=== PATIENT | female | born 1940 | race Caucasian/White ===

== ENCOUNTER 2020-02-01 08:38 | Emergency (ER) | payer OTHER ==
--- OUTSIDE RECORDS SUMMARY | 2020-02-01 08:48 | XMS REPORT | Continuity of Care Document ---
:1940 Author Organization [facility] t Address [address] [place] [address] Care Team Providers Name Role Phone Asked, Pcp Primary Care Physician Unavailable Rachelle Mars MA Attending Clinician Unavailable Noni BAY Attending Clinician Fabio DUMONT Attending Clinician Unavailable Payers Payer Name Policy Type Policy Effective Date Expiration Date Sour ce Number AETNA MEDICAREAETNA [id number] 2019 [place] MEDICARE HMO/PPO 00:00:00 Methodis t [id number] Problems Condition Condition Condition Status Onset Resolution Last Treating Co mments Source Name Details Category Date Date Treatment Clinician Date Other Other Disease Active [place]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 Me thodi scoliosis, scoliosis, 00:00: st thoracolum thoracolum 00 bar region bar region DDD DDD Disease Active [place] (degenerat (degenerat 5-22 Me thodi jania disc jania disc 00:00: st disease), disease), 00 lumbar lumbar Osteoarthr Osteoarthr Disease Active 2017-04 [place] itis of itis of 04-25 [facility] spine with spine with 00:00: st radiculopa radiculopa 00 thy, thy, lumbar lumbar region region Cough Cough Disease Active 2016-04 [place] 04-08 Methodi 00:00: st 00 Chronic Chronic Disease Active [place] left-sided left-sided 4-24 Me th[facility] low back low back 00:00: st pain pain 00 without without sciatica sciatica Meibomian Meibomian Disease Active 2015-04 Jolly ston blephariti blephariti Me thodi s s 00:00: st 00 Eczema Eczema Disease Active 2015-04 [place] Methodi 00:00: st 00 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 7- Dx age 35 M ethodi involving involving 00:00: st multiple multiple 00 sites with sites with positive positive rheumatoid rheumatoid factor factor Hypothyroi Hypothyroi Disease Active katya dism dism 10-16 Methodi 00:00: st 00 Osteoporos Osteoporos Disease Active [place] is is 10-16 Methodi 00:00: st 00 GERD GERD Disease Active Overview: [place] (gastroeso (gastroeso 10-16 With Me thodi phageal phageal 00:00: stricture st reflux reflux 00 disease) disease) Allergies, Adverse Reactions, Alerts Allergy Allergy Status Severity Reaction(s) Onset Inactive Treating Comm ents Source Name Type Date Date Clinician Gold Propensi Active 2015-04 [place] Salts ty to Methodi adverse 00:00: st reaction 00 s to drug Propoxyp Propensi Active [place] ty to 10-16 [facility] adverse 00:00: st reaction 00 s to drug Penicill Propensi Active Anaphylaxis [place] ins ty to 10-16 Methodi adverse 00:00: st reaction 00 s to drug Family History Family Member Diagnosis Comments Start Date Stop Date Source Maternal uncle Ankylosing spondylitis [place] Taoism Natural mother Rheum arthritis [place] [facility] Social History Social Habit Start Date Stop Date Quantity Comments Source History of Cigarette Smoker [facility] tobacco use Sex Assigned At [facility] ethodist Tobacco use and 2018-08-26 2018-08-26 Never used [facility] ethodist exposure 00:00:00 00:00:00 Tobacco Comment 2016-01-31 2016-01-31 3-4 per day [place] [facility] 00:00:00 00:00:00 Alcohol Comment 2016-01-31 2016-01-31 4 glasses wine [place] [facility] 00:00:00 00:00:00 per year Smoking Status Start Date Stop Date Source Former smoker 2018-08-26 00:00:00 2018-08-26 00:00:00 [facility] Medications Ordered Filled Start Stop Current Ordering Indication Dosage Frequency Signature Comments Components Source Medication Medication Date Date Medication? Clinician (SIG) Name Name acetaminoph 2020-0 Yes 1000mg Q.5D Take 1,000 [place] en 8-13 mg by Methodi (TYLENOL) 11:26: mouth 2 st 500 MG 33 (two) tablet times a day. calcium 2020-0 Yes 1{tbl} Q.5D Take 1 [place] carbonate-v 8-13 tablet by Met baires itamin D3 11:22: mouth 2 st 500 mg-200 31 (two) unit per times a tablet day with meals. cevimeline 2019-0 Yes 30mg Q.[id number] Take 1 [place] (EVOXAC) 30 8-13 [id number] capsule Methodi mg capsule 00:00: 3D ([address] 00 total) by mouth 3 (three) times a day. levothyroxi Yes 50ug QD Take 1 [place] 8-13 tablet (50 [facility] (SYNTHROID) 00:00: mcg total) st 50 mcg 00 by mouth tablet daily. leflunomide 2020- Yes 20mg QD Take 1 Jolly ston (ARAVA) 20 8-17 11-14 tablet (20 Me thodi MG tablet 00:00: 23:59 mg total) st 00 :00 by mouth daily. etanercept 2020- Yes INJECT [place] (EnbreL) 50 8- 08-14 50MG [facility]i mg/mL (1 00:00: 23:[address] mL) 00 :00 USLY injection EVERY WEEK etanercept 2020- No INJECT [place] (EnbreL) 50 8- 08-13 50MG [facility] mg/mL (1 00:00: 00:[address] mL) 00 :00 USLY injection EVERY WEEK cevimeline 2020- No 30mg Q.[id number] TAKE 1 [place] (EVOXAC) 30 6-25 08-13 [id number] CAPSULE [facility] mg capsule 00:00: 00:00 3D ([address] 00 :00 TOTAL) BY MOUTH 3 (THREE) TIMES A DAY. minocycline 2020- No Rheumatoid 50mg Q.5D Take 1 [place] (DYNACIN) 07-06-02 arthritis tablet (50 Methodi 50 MG 00:00: 23:59 involving mg total) s t tablet 00 :00 multiple by mouth 2 sites with (two) positive times a rheumatoid day. factor (HCC) levothyroxi 2019- No 50ug QD Take 1 Jolly adrianan ne 07-06- tablet (50 [facility] (SYNTHROID) 00:00: 00:00 mcg total) st 50 mcg 00 :00 by mouth tablet daily. cevimeline 2019- No 30mg Q.[id number] Take 1 [place] (EVOXAC) 30 07-06 [id number] capsule Methodi mg capsule 00:00: 00:00 3D ([address] 00 :00 total) by mouth 3 (three) times a day. leflunomide 2019- No TAKE 1 Jolly pedraza (ARAVA) 20 04-29 TABLET BY hodi MG tablet 00:00: 00:00 MOUTH ONCE s t 00 :00 A DAY cevimeline 2019- No TAKE 1 [place] (EVOXAC) 30 04-29 CAPSULE BY M ethodi mg capsule 00:00: 00:[address] 00 :00 TIMES A DAY etanercept 2018-04- No INJECT [place] (ENBREL) 50 2 08-10 50MG Methodi mg/mL (1 00:00: 00:[address] mL) 00 :00 USLY injection EVERY WEEK traMADol 2018-04- No TAKE 2 [place] (ULTRAM) 50 05-01-13 TABLETS BY M ethodi mg tablet 00:00: 00:[address] 00 :00 EVERY 6 HOURS NEEDED FOR MODERATE PAIN levothyroxi 2018-04- No TAKE 1 Jolly pedraza ne 05-01 TABLET BY Methodi (SYNTHROID) 00:00: 00:[address] 50 mcg 00 :00 A DAY tablet levothyroxi 2018- No TAKE 1 Jolly ston ne 12-14 TABLET BY Methodi (SYNTHROID, 00:00: 00:[address] LEVOXYL) 50 00 :00 A DAY mcg tablet minocycline 2019- No Rheumatoid TAKE 1 [place] (DYNACIN) 10-09 arthritis TABLET BY Methodi 50 MG 00:00: 00:[address] tablet 00 :00 multiple TWICE A sites with DAY positive rheumatoid factor (HCC) cevimeline 2019- No TAKE 1 [place] (EVOXAC) 30 10-09 CAPSULE BY M ethodi mg capsule 00:00: 00:[address] 00 :00 TIMES A DAY leflunomide 2019- No TAKE 1 Jolly pedraza (ARAVA) 20 704-29 TABLET BY Met hodi MG tablet 00:00: 00:00 MOUTH ONCE s t 00 :00 A DAY etanercept 2018- INJECT THE [place] (ENBREL) 50 08-26 12-05 CONTENTS Met hodi mg/mL (0.98 00:00: 00:00 OF ONE(1) st mL) 00 :00 PREFILLED injection SYRINGE SUBCUTANEO USLY ONCE A WEEK. traMADol 2018- No 100mg Q6H Take 2 [place] (ULTRAM) 50 5- 11-22 tablets Meth elizabeth mg tablet 00:00: 00:00 ([address] 00 :00 total) by mouth every 6 (six) hours as needed for moderate pain for up to 180 days. Immunizations Ordered Immunization Filled Immunization Date Status Commen ts Source Name Name PPD Test 2009-10-12 Completed [place] 00:00:00 Taoism Vital Signs Vital Name Observation Time Observation Value Comments Source Systolic blood 2019-11-18 11:22:00 160 mm[Hg] [place] [facility] pressure Diastolic blood 2019-11-18 11:22:00 107 mm[Hg] [place] [facility] pressure Heart rate 2019-11-18 11:22:00 92 /min [place] Bell Body temperature 2019-11-18 11:22:00 36.72 Rose [place] ton Taoism Body weight 2019-11-18 11:22:00 55.792 kg [place] Bell BMI 2019-11-18 11:22:00 24.02 kg/m2 [place] Bell Oxygen saturation in 2019-11-18 11:22:00 100 /min [place] Bell Arterial blood by Pulse oximetry Procedures Procedure Date / Time Performed Performing Clinician Sour e CBC WITH PLATELET AND 2019-11-18 12:04:00 Lv Cheney DIFFERENTIAL COMPREHENSIVE METABOLIC 2019-11-18 12:04:00 Lv Cheney PANEL SEDIMENTATION RATE 2019-11-18 12:04:00 Lv Cheney C-REACTIVE PROTEIN 2019-11-18 12:04:00 Lv Cheney ethodist CBC WITH PLATELET AND 2019-02-24 11:14:00 Lv Cheney Taoism DIFFERENTIAL COMPREHENSIVE METABOLIC 2019-02-24 11:14:00 Lv Cheney Taoism PANEL SEDIMENTATION RATE 2019-02-24 11:14:00 Lv Cheney ethodist C-REACTIVE PROTEIN 2019-02-24 11:14:00 Lv Cheney ethodist Plan of Care Planned Activity Planned Date Details Comments Source Future Scheduled 2019-11-06 INFLUENZA VACCINE Lelo krueger [facility] Test 00:00:00 [code = INFLUENZA VACCINE] Future Scheduled 2004-07-29 65+ PNEUMOCOCCAL [place] [facility] Test 00:00:00 VACCINE (1 of 1 - PPSV23) [code = 65+ PNEUMOCOCCAL VACCINE (1 of 1 - PPSV23)] Future Scheduled 1989-07-29 SHINGLES VACCINES (#1) [facility] [place] [facility] Test 00:00:00 [code = SHINGLES VACCINES (#1)] Encounters Start End Encounter Admission Attending Care Care Encounter Source Date/Time Date/Time Type Type Clinicians Facility Department ID 2019-11-18 2019-11-18 Outpatient NONI [facility] [id number] [place] 00:00:00 00:00:00 LV Alexander Method i st Results Test Description Test Time Test Comments Results Result Comments Source Comprehensive metabolic panel 2019-11-23 14:29:00 Test Item Value Reference Range Interpretation Comme nts Glucose (test code = 2345-7) 101 mg/dL 65-99 H BUN (test code = 3094-0) 28 mg/dL 8-27 H Creatinine (test code = 2160-0) 0.90 mg/dL 0.57-1 EGFR Non-Afr. Romanian (test code = 61 mL/min/1.73 >59 2775) EGFR (test code = 70 mL/min/1.73 >59 2774) BUN/creatinine ratio (test code = 31 12-28 H 3097-3) Sodium (test code = 2951-2) 142 mmol/L 134-144 Potassium (test code = 2823-3) 4.7 mmol/L 3.5-5.2 Chloride (test code = 2075-0) 99 mmol/L 96-106 CO2 (test code = 2027-9) 25 mmol/L 20-29 Calcium (test code = 99423-4) 11.0 mg/dL 8.7-10.3 H Protein (test code = 2885-2) 7.0 g/dL 6-8.5 Albumin, S (test code = 1751-7) 4.2 g/dL 3.7-4.7 Globulin, total (test code = 2.8 g/dL 1.5-4.5 87538-3) Albumin/globulin ratio (test code = 1.5 1.2-2.2 1759-0) Total bilirubin (test code = 1974-2) 0.3 mg/dL 0-1.2 Alkaline phosphatase (test code = 104 39- 117 IU/L 6768-6) AST (test code = 192-8) 23 0- 40 IU/L ALT (test code = 1742-6) 13 0- 32 IU/L JERONIMO (test code = JERONIMO) Performed at: - [facility] [id number] Director: Zack Moore MD, Phone: [phone] Lab Interpretation (test code = Abnormal 18039-4) [facility]-reactive [id number] 14:29:00 Test Item Value Reference Range Interpretation Comments CRP (test code = <1 0-10 1987-5) JERONIMO (test code = Performed at: - JERONIMO) [facility] [address] [id number] Director: Zack Moore MD, Phone: [phone] [facility] with platelet and [id number] 14:29:00 Test Item Value Reference Range Interpretation Comments WBC (test code = 5.7 3.4- 10.8 x10E3/uL 6690-2) RBC (test code = 4.25 3.77- 5.28 789-8) x10E6/uL HGB (test code = 12.7 g/dL 11.1-15.9 718-7) HCT (test code = 39.0 % 34-46.6 4544-3) MCV (test code = 92 fL 79-97 787-2) MCH (test code = 29.9 pg 26.6-33 785-6) MCHC (test code = 32.6 g/dL 31.5-35.7 786-4) RDW (test code = 14.3 % 11.7-15.4 788-0) Platelet count (test 278 150- 450 x10E3/uL code = 777-3) Neutrophils (test code 63 % Not Estab. = 770-8) Lymphocytes (test code 22 % Not Estab. = 736-9) Monocytes (test code = 12 % Not Estab. 5905-5) Eosinophils (test code 1 % Not Estab. = 713-8) Basophils (test code = 2 % Not Estab. 706-2) Neutrophils, absolute 3.6 1.4- 7.0 x10E3/uL (test code = 751-8) Lymphocytes, absolute 1.3 0.7- 3.1 x10E3/uL (test code = 731-0) Monocytes, absolute 0.7 0.1- 0.9 x10E3/uL (test code = 742-7) Eosinophils, absolute 0.1 0.0- 0.4 x10E3/uL (test code = 711-2) Basophils, absolute 0.1 0.0- 0.2 x10E3/uL (test code = 704-7) Immature granulocytes 0 % Not Estab. (test code = 67661-4) Immature grans (abs) 0.0 0.0- 0.1 x10E3/uL (test code = 31662-1) JERONIMO (test code = JERONIMO) Performed at: [facility] [id number] Director: Zack Moore MD, Phone: [phone] Comment: A duplicate report has been generated due to demographic updates. [place] [facility] [id number] 14:29:00 Test Item Value Reference Range Interpretation Comments Sedimentation rate (test 52 0- 40 mm/hr H code = 4537-7) JERONIMO (test code = JERONIMO) Performed at: [facility] [id number] Director: Zack Moore MD, Phone: [phone] Lab Interpretation (test Abnormal code = 74792-7) [facility] Bell
--- OUTSIDE RECORDS SUMMARY | 2020-02-01 08:48 | XMS REPORT | Clinical Summary ---
:1940 Author Organization [facility] Address [address] [place] [address] Care Team Providers Name Role Phone Asked, No Pcp Primary Care Provider Unavailable Allergies Active Allergy Reactions Severity Noted Date Comments Propoxyphene 10/17/2015 Gold Salts 01/31/2016 Penicillins Anaphylaxis High 10/17/2015 Medications Medication Sig Dispensed Refills Start End Status Date Date calcium Take 1 tablet by 0 Act jania carbonate-vitamin mouth 2 (two) D3 500 mg-200 times a day with unit per tablet meals. minocycline Take 1 tablet (50 180 tablet 1 07/07/19 Active (DYNACIN) 50 MG mg total) by mouth 20 021 tabletIndications 2 (two) times a : Rheumatoid day. arthritis involving multiple sites with positive rheumatoid factor (HCC) acetaminophen Take 1,000 mg by 0 Active (TYLENOL) 500 MG mouth 2 (two) tablet times a day. leflunomide Take 1 tablet (20 90 tablet 1 11/18/19 Active (ARAVA) 20 MG mg total) by mouth 20 021 tablet daily. cevimeline Take 1 capsule (30 270 capsule 0 11/18/19 Active (EVOXAC) 30 mg mg total) by mouth 20 capsule 3 (three) times a day. levothyroxine Take 1 tablet (50 90 tablet 1 11/18/19 Active (SYNTHROID) 50 mcg total) by 20 mcg tablet mouth daily. etanercept INJECT 50MG 11.76 mL 5 11/18/19 Active (EnbreL) 50 mg/mL SUBCUTANEOUSLY 20 021 (1 mL) injection EVERY WEEK traMADol (ULTRAM) Take 2 tablets 120 tablet 3 08/27/19 Discontinued 50 mg tablet (100 mg total) by (Reorder) mouth every 6 (six) hours as needed for moderate pain for up to 180 days. etanercept INJECT THE 12 mL 1 08/27/19 Disconti nued (ENBREL) 50 mg/mL CONTENTS OF ONE(1) (Reorder) (0.98 mL) PREFILLED SYRINGE injection SUBCUTANEOUSLY ONCE A WEEK. minocycline TAKE 1 TABLET BY 180 tablet 1 10/10/19 Discontinued (DYNACIN) 50 MG MOUTH TWICE A DAY (Reorder) tabletIndications : Rheumatoid arthritis involving multiple sites with positive rheumatoid factor (HCC) cevimeline TAKE 1 CAPSULE BY 270 capsule 1 10/10/19 Discontinued (EVOXAC) 30 mg MOUTH 3 TIMES A capsule DAY leflunomide TAKE 1 TABLET BY 90 tablet 1 10/10/19 D iscontinued (ARAVA) 20 MG MOUTH ONCE A DAY tablet levothyroxine TAKE 1 TABLET BY 90 tablet 0 12/15/19 Discontinued (SYNTHROID, MOUTH ONCE A DAY ( Reorder) LEVOXYL) 50 mcg tablet levothyroxine TAKE 1 TABLET BY 90 tablet 1 03/01/20 Discontinued (SYNTHROID) 50 MOUTH ONCE A DAY (Reorder) mcg tablet traMADol (ULTRAM) TAKE 2 TABLETS BY 120 tablet 1 03/01/2020/05 Discontinued 50 mg tablet MOUTH EVERY 6 19 020 HOURS NEEDED FOR MODERATE PAIN etanercept INJECT 50MG 11.76 mL 5 03/11/20 Discont inued (ENBREL) 50 mg/mL SUBCUTANEOUSLY (Reorder) (1 mL) injection EVERY WEEK leflunomide TAKE 1 TABLET BY 90 tablet 0 04/29/19 D iscontinued (ARAVA) 20 MG MOUTH ONCE A DAY (Reorder) tablet cevimeline TAKE 1 CAPSULE BY 270 capsule 0 04/29/19 Discontinued (EVOXAC) 30 mg MOUTH 3 TIMES A 020 (Reorder) capsule DAY levothyroxine Take 1 tablet (50 90 tablet 1 07/07/19 Discontinued (SYNTHROID) 50 mcg total) by 20 020 ( Reorder) mcg tablet mouth daily. cevimeline Take 1 capsule (30 270 capsule 0 07/07/19 Discontinued (EVOXAC) 30 mg mg total) by mouth 20 020 capsule 3 (three) times a day. cevimeline TAKE 1 CAPSULE (30 270 capsule 0 09/30/19 Discontinued (EVOXAC) 30 mg MG TOTAL) BY MOUTH 20 020 (Reorder) capsule 3 (THREE) TIMES A DAY. 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 10/17/2015 factor Overview: Dx age 35 Hypothyroidism 10/17/2015 Osteoporosis 10/17/2015 GERD (gastroesophageal reflux disease) 10/17/2015 Overview: With stricture Encounters Date Type Specialty Care Team Description 01/05/2020 Telephone Rheumatology Thomas Mars MA Osteopor osis, unspecified osteoporosis ty pe, unspecified pat hological fracture presen ce (Primary Dx) 11/18/2019 Office Visit Rheumatology Liz Cheney MD Rheumatoi d arthritis involving multiple sites with positive rheumatoid factor (HCC) (Primary Dx); Immunosuppresse d status (HCC); High risk medic ation use; Blue sclera 11/18/2019 Refill Rheumatology Hannah Mccarthy MA 11/18/2019 Travel 11/15/2019 Refill Rheumatology Hannah Mccarthy MA 09/30/2019 Refill Rheumatology Liz Cheney MD 07/09/2019 Telephone Rheumatology Thomas Mars MA 07/07/2019 Refill Rheumatology Hannah Mccarthy MA Rheumatoid a rthritis involving multi ple sites with positive r heumatoid factor (HCC) 07/05/2019 Refill Rheumatology Hannah Mccarthy MA Rheumatoid a rthritis involving multi ple sites with positive r heumatoid factor (HCC) 06/08/2019 Telephone Rheumatology Thomas Mars MA 04/29/2019 Refill Rheumatology Liz Cheney MD 03/12/2019 Telephone Rheumatology Thomas Mars MA 03/11/2019 Refill Rheumatology Liz Cheney MD 02/26/2019 Refill Rheumatology Liz Cheney MD 02/24/2019 Office Visit Rheumatology Liz Cheney MD Rheumatoi d arthritis involving multiple sites with positive rheumatoid factor (HCC) (Primary Dx); Immunosuppresse d status (HCC); High risk medic ation use after 01/31/2019 Immunizations Name Administration Dates Next Due PPD Test 10/12/2009 Surgical History Surgery Date Site/Laterality Comments FOOT SURGERY 04/07/2003 - Left 04/06/2004 SHOULDER SURGERY Bilateral HAND SURGERY redo x2 KNEE SURGERY 04/07/1991 - Right 04/06/1992 KNEE SURGERY 02/06/1992 - Left 03/06/1992 TOTAL ELBOW REPLACEMENT 04/07/1994 - Left Right el bow replacement 04/06/1995 also done same y ear WRIST FUSION 04/07/1993 - Left Right wrist also done same 05/07/1993 year Medical History Medical History Date Comments Disease of thyroid gland Arthritis Menopause ovarian failure Family History Medical History Relation Name Comments Ankylosing spondylitis Maternal Uncle Rheum arthritis Mother Relation Name Status Comments Maternal Uncle Ankylosing spond ylitis Maternal Uncle Mother Social History Tobacco Use Types Packs/Day Years Used Date Former Smoker Cigarettes 2 Smokeless Tobacco: Never Used Comments: 3-4 per day Sex Assigned at Date Recorded Not on file Last Filed Vital Signs Vital Sign Reading Time Taken Comments Blood Pressure 160/107 11/18/2019 11:22 AM CDT Pulse 92 11/18/2019 11:22 AM CDT Temperature 36.7 C (98.1 F) 11/18/2019 11:22 AM CDT Respiratory Rate - - Oxygen Saturation 100% 11/18/2019 11:22 AM CDT Inhaled Oxygen Concentration - - Weight 55.8 kg (123 lb) 11/18/2019 11:22 AM CDT Height - - Body Mass Index 24.02 01/21/2019 10:30 AM CDT Plan of Treatment Date Type Specialty Care Team Description 05/31/2020 [place] [address] [facility] [address] [place], [place] [address] [phone] Health Maintenance Due Date Last Done Comments SHINGLES VACCINES (#1) 07/29/1989 65+ PNEUMOCOCCAL VACCINE (1 of 1 - PPSV23) 07/29/2004 INFLUENZA VACCINE 11/06/2019 01/05/2018 Procedures Procedure Name Priority Date/Time Associated Comments Diagnosis C-REACTIVE PROTEIN Routine 11/18/2019 12:04 Rheumatoid Resul ts for this PM CDT arthritis involving procedur e are in multiple sites with the resu lts positive rheumatoid section. factor (HCC) SEDIMENTATION RATE Routine 11/18/2019 12:04 Rheumatoid Resul ts for this PM CDT arthritis involving procedur e are in multiple sites with the resu lts positive rheumatoid section. factor (HCC) COMPREHENSIVE Routine 11/18/2019 12:04 Rheumatoid Results fo r this METABOLIC PANEL PM CDT arthritis involving proce dure are in multiple sites with the resu lts positive rheumatoid section. factor (HCC) CBC WITH PLATELET AND Routine 11/18/2019 12:04 Rheumatoid Re sults for this DIFFERENTIAL PM CDT arthritis involving procedur e are in multiple sites with the resu lts positive rheumatoid section. factor (HCC) C-REACTIVE PROTEIN Routine 02/24/2019 11:14 Rheumatoid Resul ts for this AM CNC SET UP OPERATOR arthritis involving procedur e are in multiple sites with the resu lts positive rheumatoid section. factor (HCC) SEDIMENTATION RATE Routine 02/24/2019 11:14 Rheumatoid Resul ts for this AM CNC SET UP OPERATOR arthritis involving procedur e are in multiple sites with the resu lts positive rheumatoid section. factor (HCC) COMPREHENSIVE Routine 02/24/2019 11:14 Rheumatoid Results fo r this METABOLIC PANEL AM CNC SET UP OPERATOR arthritis involving proce dure are in multiple sites with the resu lts positive rheumatoid section. factor (HCC) CBC WITH PLATELET AND Routine 02/24/2019 11:14 Rheumatoid Re sults for this DIFFERENTIAL AM CNC SET UP OPERATOR arthritis involving procedur e are in multiple sites with the resu lts positive rheumatoid section. factor (HCC) after 01/31/2019 Results Sedimentation rate (11/18/2019 12:04 PM CDT)Only the most recent of2 results within the time period is included. Pathologist Sig nature Sedimentation rate 52 (H) 0 - 40 mm/hr [facility] Specimen Blood Narrative Performed At Performed at: 01 - [facility] [address], [place] [address] 217 Geospatial Analyst: Zack Moore MD, Phone: [phone] Performing Organization Address City/[facility] Phon e Number [facility] CBC with platelet and differential (11/18/2019 12:04 PM CDT)Only the most recent of2 resultswithin the time period is included. Pathologist Sig nature WBC 5.7 3.4 - 10.8 x10E3/uL [facility] RBC 4.25 3.77 - 5.28 x10E6/uL [facility] HGB 12.7 11.1 - 15.9 g/dL [facility] HCT 39.0 34.0 - 46.6 % [facility] MCV 92 79 - 97 fL [facility] MCH 29.9 26.6 - 33.0 pg [facility] MCHC 32.6 31.5 - 35.7 g/dL [facility] RDW 14.3 11.7 - 15.4 % [facility] Platelet count 278 150 - 450 x10E3/uL [facility] Neutrophils 63 Not Estab. % [facility] Lymphocytes 22 Not Estab. % [facility] Monocytes 12 Not Estab. % [facility] Eosinophils 1 Not Estab. % [facility] Basophils 2 Not Estab. % [facility] Neutrophils, absolute 3.6 1.4 - 7.0 x10E3/uL [facility] Lymphocytes, absolute 1.3 0.7 - 3.1 x10E3/uL [facility] Monocytes, absolute 0.7 0.1 - 0.9 x10E3/uL [facility] Eosinophils, absolute 0.1 0.0 - 0.4 x10E3/uL [facility] Basophils, absolute 0.1 0.0 - 0.2 x10E3/uL [facility] Immature granulocytes 0 Not Estab. % [facility] Immature grans (abs) 0.0 0.0 - 0.1 x10E3/uL [facility] Specimen Blood Narrative Performed At Performed at: - [facility] [address], [place] [address] 143 Geospatial Analyst: Zack Moore MD, Phone: [phone] Specimen Comment: A duplicate report has been generate d due to demographic updates. Performing Organization Address City/[facility]/ZIP Code Phon e Number [facility] C-reactive protein (11/18/2019 12:04 PM CDT)Only the most recent of2 results within the time period is included. Pathologist Sig nature CRP <1 0 - 10 mg/L [facility] Specimen Blood Narrative Performed At Performed at: [facility] [id number] Geospatial Analyst: Zack Moore MD, Phone: [phone] Performing Organization Address [facility] Phon e Number [facility] Comprehensive metabolic panel (11/18/2019 12:04 PM CDT)Only the most recent of2 resultswithin the time period is included. Pathologist Sig nature Glucose 101 (H) 65 - 99 mg/dL [facility] BUN 28 (H) 8 - 27 mg/dL [facility] Creatinine 0.90 0.57 - 1.00 mg/dL [facility] EGFR Non-Afr. [place] 61 >59 mL/min/1.73 [facility] EGFR 70 >59 mL/min/1.73 [facility] BUN/creatinine ratio 31 (H) 12 - 28 [facility] Sodium 142 134 - 144 mmol/L [facility] Potassium 4.7 3.5 - 5.2 mmol/L [facility] Chloride 99 96 - 106 mmol/L [facility] CO2 25 20 - 29 mmol/L [facility] Calcium 11.0 (H) 8.7 - 10.3 mg/dL [facility] Protein 7.0 6.0 - 8.5 g/dL [facility] Albumin, S 4.2 3.7 - 4.7 g/dL [facility] Globulin, total 2.8 1.5 - 4.5 g/dL [facility] Albumin/globulin ratio 1.5 1.2 - 2.2 [facility] Total bilirubin 0.3 0.0 - 1.2 mg/dL [facility] Alkaline phosphatase 104 39 - 117 IU/L [facility] AST 23 0 - 40 IU/L [facility] ALT 13 0 - 32 IU/L [facility] Specimen Blood Narrative Performed At [facility]formed at: [facility] [id number] Geospatial Analyst: Zack Moore MD, Phone: [phone] Performing Organization Address City/State/ZIP Code Phon e Number [facility] after 01/31/2019 Advance Directives For more information, please contact: [phone] Type Date Recorded Patient Customer Resource Specialist Explanati on Advance Directives, Living 02/15/2004 10:20 AM Will and Medical Power of Forensics Team Director
[2020-02-01] MEDS ORDERED: ONDANSETRON 4 MG/2 ML VIAL ONE ×2 (09:08→11:10)
[2020-02-01] MEDS ORDERED: ASPIRIN 81 MG CHEWABLE TABLET ONE (09:08)
[2020-02-01 09:21] LABS: Absolute Lymphocytes (CBC) 0.7 K/uL (0.7-4.9); Basophils % 0.3 % (0-1.3); Hematocrit 36.8 % (36.0-45.0); Lymphocytes % 6.6 % (15.3-44.8); MPV 7.7 fL (7.6-11.3); RBC Red Blood Cell Count 4.16 M/uL (3.86-4.86)
[2020-02-01 09:24] LABS: Protime INR 1.05
--- NOTE | 2020-02-01 09:44 | RAD REPORT ---
EXAM DESCRIPTION: RAD - Chest Single View - 02/01/2020 9:23 am CLINICAL HISTORY: CHEST PAIN COMPARISON: Portable August 2014 TECHNIQUE: AP portable chest image was obtained 02/01/2020 9:23 am . FINDINGS: No peripheral mass or consolidation. Mild chronic interstitial lung disease is evident. Th e interstitial pattern has not clearly changed. Heart and vasculature are normal. No measurable pleur al effusion and no pneumothorax. Bilateral shoulder prostheses are in place. There is contour deformi ty of the inferior aspect of each clavicle. Degenerative changes involve each acromion. This degenera tive joint disease or pseudoarthrosis has not changed. Costochondral calcifications are present. No a cute aortic findings suspected. IMPRESSION: No acute cardiopulmonary process. No significant change from comparison.
[2020-02-01 09:54] LABS: ALT/SGPT 19 U/L (12-78); AST/SGOT 33 U/L (15-37); Albumin 2.5 g/dL (3.4-5.0); Alkaline Phosphatase 243 U/L (45-117); BUN Blood Urea Nitrogen 18 mg/dL (7-18); Bicarbonate 27 mmol/L (21-32); Bilirubin Direct 0.3 mg/dL (0-0.2); Bilirubin Total 0.9 mg/dL (0.2-1.0); Glucose Level 93 mg/dL (74-106); Magnesium 2.1 mg/dL (1.8-2.4); NT PRO-BNP 2196 pg/mL (<450); Potassium 3.5 mmol/L (3.5-5.1); Protein, Total 7.3 g/dL (6.4-8.2); Sodium Level 138 mmol/L (136-145); Troponin (Emerg Dept Use Only) < 0.02 ng/mL (0.0-0.045)
[2020-02-01 09:55] LABS: Lipase > 30000 U/L (73-393)
[2020-02-01 09:56] LABS: Blood Morphology Comment NOT SEEN (NOT SEEN); Platelet Estimate INCR; White Blood Cell Scan OK (OK)
[2020-02-01] MEDS ORDERED: NA CHLORIDE 0.9% 1,000 ML ONE ×2 (10:30→10:42)
--- NOTE | 2020-02-01 10:40 | ER ---
Nurse's Notes [facility] [place], [place] Name: Chelsea Johnson Age: 79 yrs Sex: Female : 1940 Arrival Date: 02/01/2020 Time: 08:40 Bed 7 Private MD: Diagnosis: Abdominal tenderness;Chest pain, unspecified;Acute pancreatitis-mass in the head of the pancrease;Vomiting Presentation: 01/31 08:56 Chief complaint: Patient states: midsternal non radiating chest pain since 5 pm iw yesterday, constant, pressure, also vomited three times,no cardiac hx, denies abd pain. Coronavirus screen: At this time, the client does not indicate any symptoms associated with coronavirus-19. Ebola Screen: Patient negative for fever greater than or equal to 101.5 degrees Fahrenheit, and additional compatible Ebola Virus Disease symptoms Patient denies exposure to infectious person. Patient denies travel to an Ebola-affected area in the 21 days before illness onset. No symptoms or risks identified at this time. Initial Sepsis Screen: Does the patient meet any 2 criteria? No. Patient's initial sepsis screen is negative. Does the patient have a suspected source of infection? No. Patient's initial sepsis screen is negative. Risk Assessment: Do you want to hurt yourself or someone else? Patient reports no desire to harm self or others. Onset of symptoms was January 31, 2020. 08:56 Method Of Arrival: Wheelchair iw 08:56 Acuity: MARCUS 2 iw Historical: - Allergies: 09:03 Darvon; iw 09:03 GOLD SALTS; iw 09:03 PENICILLINS; iw - Home Meds: 09:03 minocycline 50 mg Oral cap 1 cap 2 times per day [Active]; cevimeline 30 mg Oral cap 1 iw cap 3 times per day [Active]; leflunomide 20 mg Oral tab 1 tab once daily [Active]; Synthroid 50 mcg Oral tab 1 tab once daily [Active]; Enbrel 25 mg/0.5mL (0.51) subcutaneous syrg 1 mL once wkly [Active]; Calcium Carbonate Oral daily [Active]; - PMHx: 09:03 cervical cancer; GERD; Hypothyroidism; osteoarthritis; Osteoporosis; Rheumatoid iw Arthritis; - PSHx: 09:03 Joint replacement; Cholecystectomy; back; iw - Immunization history:: Adult Immunizations up to date. - Social history:: Smoking status: Patient/guardian denies using tobacco, but has a distant history of tobacco abuse. - Family history:: not pertinent. Screenin:11 Abuse screen: Denies threats or abuse. Denies injuries from another. Nutritional jl7 screening: No deficits noted. Tuberculosis screening: No symptoms or risk factors identified. Fall Risk IV access (20 points). Total Hardy Fall Scale indicates No Risk (0-24 pts). Assessment: 09:11 General: Appears in no apparent distress. uncomfortable, Behavior is calm, cooperative, jl7 appropriate for age. Pain: Complains of pain in mid-sternal area Pain does not radiate. Pain currently is 3 out of 10 on a pain scale. at worst was 8 out of 10 on a pain scale. Quality of pain is described as pressure, Pain began 1 day ago. Is continuous. Neuro: Level of Consciousness is awake, alert, obeys commands, Oriented to person, place, time, situation. Cardiovascular: Patient's skin is warm and dry. Respiratory: Airway is patent Respiratory effort is even, unlabored, Respiratory pattern is regular, symmetrical. GI: Reports nausea. Derm: Skin is pink, warm \T\ dry. 11:37 Reassessment: Dr. Martinez at bedside. jl7 Vital Signs: 08:56 BP 156 / 119; Pulse 113; Resp 16 S; Pulse Ox 100% on R/A; Weight 49.9 kg; Height 5 ft. iw 0 in. (152.40 cm); Pain 3/10; 10:12 BP 156 / 96; Pulse 97; Resp 16; Pulse Ox 100% on R/A; iw 10:42 BP 187 / 97; Pulse 101; Resp 18; Pulse Ox 100% ; jl7 11:37 Temp 97.8; jl7 11:37 BP 187 / 105; Pulse 106; Resp 18; Pulse Ox 100% ; jl7 13:01 BP 161 / 94; Pulse 97; Resp 16; Pulse Ox 99% ; jl7 08:56 Body Mass Index 21.48 (49.90 kg, 152.40 cm) ED Course: 08:40 Patient arrived in ED. as 08:44 Pankaj Yepez MD is Attending Physician. [facility] 08:55 EKG completed in triage. Results shown to . jl7 08:58 Triage completed. iw 09:03 Arm band placed on. iw 09:03 Patient has correct armband on for positive identification. Placed in gown. Bed in low jl7 position. Call light in reach. Side rails up X2. lease administrator on. Pulse ox on. NIBP on. Warm blanket given. 09:03 Initial lab(s) drawn, by me, sent to lab. Inserted saline lock: 20 gauge in left jl7 forearm, using aseptic technique. Blood collected. Patient maintains SpO2 saturation greater than 95% on room air. 09:11 Martina Story, NEHEMIAS is Primary Nurse. jl7 10:40 Zan Martinez DO is Hospitalizing Provider. ashley 11:20 COVID-19 Sent. jl7 13:27 No provider procedures requiring assistance completed. Patient transferred, IV remains jl7 in place. intact, No redness/swelling at site. 13:41 Urine Culture Sent. dh4 Administered Medications: 09:05 Drug: Aspirin Chewable Tablet 162 mg Route: PO; jl7 11:34 Follow up: Response: No adverse reaction jl7 09:10 Drug: Zofran (Ondansetron) 4 mg Route: IVP; Site: left forearm; jl7 10:00 Follow up: Response: No adverse reaction; Nausea is decreased jl7 10:30 Drug: NS 0.9% 1000 ml Route: IV; Rate: 1000 ml; Site: left forearm; jl7 11:30 Follow up: Response: No adverse reaction; IV Status: Completed infusion; IV Intake: jl7 1000ml 10:55 Drug: Meropenem 1 grams Route: IV; Rate: per protocol; Site: left forearm; jl7 11:36 Follow up: IV Status: Completed infusion jl7 11:00 Drug: NS 0.9% 1000 ml Route: IV; Rate: 1 bolus; Site: left forearm; jl7 11:30 Follow up: Response: No adverse reaction; IV Status: Completed infusion; IV Intake: jl7 1000ml 11:21 Drug: Zofran (Ondansetron) 4 mg Route: IVP; Site: left forearm; jl7 13:29 Follow up: Response: No adverse reaction jl7 11:22 Drug: morphine 2 mg Route: IVP; Site: left forearm; jl7 11:25 Drug: Pepcid 20 mg Route: IVP; Site: left forearm; jl7 13:28 Follow up: Response: No adverse reaction jl7 14:11 Drug: morphine 2 mg Route: IVP; Site: left forearm; jl7 Intake: 11:30 IV: 1000ml; Total: 1000ml. jl7 11:30 IV: 1000ml; Total: 2000ml. jl7 Outcome: 10:40 Decision to Hospitalize by Provider. [facility] 11:37 ER care complete, transfer ordered by . ashley 14:17 Transferred by ground EMS to [facility], Transfer form completed. jl7 X-rays sent w/ patient. 14:17 Condition: stable 14:17 Discharge instructions given to patient, family, Instructed on the need for transfer, Demonstrated understanding of instructions. 14:18 Patient left the ED. jl7 Signatures: Pankaj Yepez MD MD cha Martinez, Amelia as Williams, Irene RN Martina Cano RN RN jl7 Michele Schwartz [facility]
--- NOTE | 2020-02-01 10:41 | EDPHYS ---
Physician Documentation [facility] Name: Chelsea Johnson Age: 79 yrs Sex: Female : 1940 Arrival Date: 02/01/2020 Time: 08:40 Bed 7 Private MD: KARLY Physician Pankaj Yepez HPI: 01/31 10:34 This 79 yrs old Female presents to ER via Wheelchair with complaints of Chest ashley Pain, Vomiting. 10:34 This 79 yrs old Female presents to ER via Wheelchair with complaints of Chest ashley Pain, Vomiting. 10:34 The patient or guardian reports chest pain that is located primarily in the substernal ashley area, epigastric area. Onset: yesterday. The pain radiates to Associated signs and symptoms: Pertinent positives: abdominal pain, nausea, vomiting. The chest pain is described as burning, a pressure. Modifying factors: The symptoms are alleviated by nothing. the symptoms are aggravated by nothing. Severity of pain: At its worst the pain was moderate in the emergency department the pain is unchanged. 10:36 Duration: The patient or guardian reports a single episode, that is still ongoing. The ashley patient has not experienced similar symptoms in the past. Historical: - Allergies: 09:03 Darvon; iw 09:03 GOLD SALTS; iw 09:03 PENICILLINS; iw - Home Meds: 09:03 minocycline 50 mg Oral cap 1 cap 2 times per day [Active]; cevimeline 30 mg Oral cap 1 iw cap 3 times per day [Active]; leflunomide 20 mg Oral tab 1 tab once daily [Active]; Synthroid 50 mcg Oral tab 1 tab once daily [Active]; Enbrel 25 mg/0.5mL (0.51) subcutaneous syrg 1 mL once wkly [Active]; Calcium Carbonate Oral daily [Active]; - PMHx: 09:03 cervical cancer; GERD; Hypothyroidism; osteoarthritis; Osteoporosis; Rheumatoid iw Arthritis; - PSHx: 09:03 Joint replacement; Cholecystectomy; back; iw - Immunization history:: Adult Immunizations up to date. - Social history:: Smoking status: Patient/guardian denies using tobacco, but has a distant history of tobacco abuse. - Family history:: not pertinent. ROS: 10:38 Constitutional: Negative for fever, chills, and weight loss, Eyes: Negative for injury, ashley pain, redness, and discharge, ENT: Negative for injury, pain, and discharge, Neck: Negative for injury, pain, and swelling, Respiratory: Negative for shortness of breath, cough, wheezing, and pleuritic chest pain, Back: Negative for injury and pain, : Negative for injury, bleeding, discharge, and swelling, MS/Extremity: Negative for injury and deformity, Skin: Negative for injury, rash, and discoloration, Neuro: Negative for headache, weakness, numbness, tingling, and seizure, Psych: Negative for depression, anxiety, suicide ideation, homicidal ideation, and hallucinations, Allergy/Immunology: Negative for hives, rash, and allergies, Endocrine: Negative for neck swelling, polydipsia, polyuria, polyphagia, and marked weight changes, Hematologic/Lymphatic: Negative for swollen nodes, abnormal bleeding, and unusual bruising. 10:38 Cardiovascular: Positive for chest pain, of the diaphragm, xyphoid area, right breast and left breast. 10:38 Abdomen/GI: Positive for abdominal pain, nausea and vomiting, abdominal cramps, of the epigastric area, right upper quadrant and left upper quadrant. Exam: 10:38 Constitutional: This is a well developed, well nourished patient who is awake, alert, ashley and in no acute distress. Head/Face: Normocephalic, atraumatic. Eyes: Pupils equal round and reactive to light, extra-ocular motions intact. Lids and lashes normal. Conjunctiva and sclera are non-icteric and not injected. Cornea within normal limits. Periorbital areas with no swelling, redness, or edema. ENT: Nares patent. No nasal discharge, no septal abnormalities noted. Tympanic membranes are normal and external auditory canals are clear. Oropharynx with no redness, swelling, or masses, exudates, or evidence of obstruction, uvula midline. Mucous membranes moist. Neck: Trachea midline, no thyromegaly or masses palpated, and no cervical lymphadenopathy. Supple, full range of motion without nuchal rigidity, or vertebral point tenderness. No Meningismus. Chest/axilla: Normal chest wall appearance and motion. Nontender with no deformity. No lesions are appreciated. Respiratory: Lungs have equal breath sounds bilaterally, clear to auscultation and percussion. No rales, rhonchi or wheezes noted. No increased work of breathing, no retractions or nasal flaring. Back: No spinal tenderness. No costovertebral tenderness. Full range of motion. Female : Normal external genitalia. Skin: Warm, dry with normal turgor. Normal color with no rashes, no lesions, and no evidence of cellulitis. MS/ Extremity: Pulses equal, no cyanosis. Neurovascular intact. Full, normal range of motion. Neuro: Awake and alert, GCS 15, oriented to person, place, time, and situation. Cranial nerves II-XII grossly intact. Motor strength 5/5 in all extremities. Sensory grossly intact. Cerebellar exam normal. Normal gait. Psych: Awake, alert, with orientation to person, place and time. Behavior, mood, and affect are within normal limits. 10:38 Cardiovascular: Rate: tachycardic, actual rate is 110 bpm, Rhythm: regular, Pulses: Pulses are 4+ in bilateral radial, brachial, femoral, popliteal, posterior tibial and and dorsalis pedis arteries.. Edema: is not appreciated, JVD: is noted bilaterally, to 1 cm. 10:38 Abdomen/GI: Inspection: abdomen appears normal, Bowel sounds: normal, Palpation: mild abdominal tenderness, moderate abdominal tenderness, in the epigastric area, right upper quadrant and left upper quadrant, Liver: no appreciated palpable abnormalities, Hernia: not appreciated. 10:43 ECG was reviewed by the Attending Physician. [facility] Vital Signs: 08:56 BP 156 / 119; Pulse 113; Resp 16 S; Pulse Ox 100% on R/A; Weight 49.9 kg; Height 5 ft. iw 0 in. (152.40 cm); Pain 3/10; 10:12 BP 156 / 96; Pulse 97; Resp 16; Pulse Ox 100% on R/A; iw 10:42 BP 187 / 97; Pulse 101; Resp 18; Pulse Ox 100% ; jl7 11:37 Temp 97.8; jl7 11:37 BP 187 / 105; Pulse 106; Resp 18; Pulse Ox 100% ; jl7 13:01 BP 161 / 94; Pulse 97; Resp 16; Pulse Ox 99% ; jl7 08:56 Body Mass Index 21.48 (49.90 kg, 152.40 cm) iw MDM: 08:44 Patient medically screened. [facility] 10:40 Differential diagnosis: abnormal EKG, acute myocardial infarction, anxiety, coronary ashley artery disease congestive heart failure Cholelithiasis esophagitis, gastritis, hiatal hernia, pancreatitis, peptic ulcer disease, stable angina, unstable angina. HEART Score: History: Moderately Suspicious (1), ECG: Normal (0), Age: > or = 65 years (2), Risk Factors: 1 or 2 risk factors (1), [Hypercholesterolemia] [Hypertension] Troponin: < or = 1 x Normal Limit (0). The patient was given aspirin in the Emergency Department. The patient's deep vein thrombosis risk score was calculated as follows: Total Score: 0. This patient was found to be at low risk for a deep vein thrombosis by using the Well's assessment criteria. The patient's pulmonary embolism risk score was calculated as follows: Total Score: 0-2 points. This patient was found to be at low risk for a pulmonary embolism by using the Well's assessment criteria. MATILDE Risk Score: 1 - patient's age is greater or equal to 65 years, 1- Known CAD, TOTAL SCORE = 2. Data reviewed: vital signs, nurses notes, lab test result(s), EKG, radiologic studies, CT scan, plain films. Data interpreted: manager monitoring: rate is 97 beats/min, rhythm is regular, Pulse oximetry: on room air is 100 %. Test interpretation: by ED physician or midlevel provider: ECG, plain radiologic studies. Counseling: I had a detailed discussion with the patient and/or guardian regarding: the historical points, exam findings, and any diagnostic results supporting the discharge/admit diagnosis, the presence of at least one elevated blood pressure reading (>120/80) during this emergency department visit, lab results, radiology results, the need for further work-up and treatment in the hospital. 11:37 ED course: due to pancreatic mass, higher level of care, [facility]. ashley 01/31 08:46 Order name: Basic Metabolic Panel 01/31 08:46 Order name: CBC with Diff 01/31 08:46 Order name: LFT's 01/31 08:46 Order name: Magnesium 01/31 08:46 Order name: NT PRO-BNP 01/31 08:46 Order name: PT-INR 01/31 08:46 Order name: Troponin (emerg Dept Use Only) 01/31 08:46 Order name: Lipase 01/31 08:46 Order name: Urine Culture 01/31 09:25 Order name: CBC with Automated Diff; Complete Time: 10:32 [facility] 01/31 09:27 Order name: Protime (+INR); Complete Time: 10:32 [facility] 01/31 09:55 Order name: Basic Metabolic Panel; Complete Time: 10:32 [facility] 01/31 09:55 Order name: Liver (Hepatic) Function; Complete Time: 10:32 [facility] 01/31 09:55 Order name: Troponin (Emerg Dept Use Only); Complete Time: 10:32 [facility] 01/31 08:46 Order name: XRAY Chest (1 view) [facility] 01/31 09:45 Order name: RAD; Complete Time: 10:32 [facility] 01/31 09:55 Order name: NT PRO-BNP; Complete Time: 10:32 [facility] 01/31 09:55 Order name: Magnesium; Complete Time: 10:32 [facility] 01/31 09:55 Order name: Lipase; Complete Time: 10:32 [facility] 01/31 09:57 Order name: CBC Smear Scan; Complete Time: 10:32 [facility] 01/31 10:10 Order name: Lipid Profile 01/31 10:11 Order name: CT Chest, Abdomen, Pelvis - W/Contrast: IV contrast only 01/31 10:32 Order name: Lipid Profile; Complete Time: 11:34 [facility] 01/31 10:34 Order name: COVID-19 [facility] 01/31 11:15 Order name: CT; Complete Time: 11:34 [facility] 01/31 12:08 Order name: CORONAVIRUS [facility] 01/31 13:36 Order name: SARS-COV-2 RT PCR [facility] 01/31 13:41 Order name: Urine Dipstick--Ancillary (enter results) 01/31 14:03 Order name: Urine Dipstick-Ancillary [facility] 01/31 08:46 Order name: EKG; Complete Time: 08:46 [facility] 01/31 08:46 Order name: Cardiac monitoring; Complete Time: 09:18 [facility] 01/31 08:46 Order name: EKG - Nurse/Tech; Complete Time: 09:18 [facility] 01/31 08:46 Order name: IV Saline Lock; Complete Time: 09:18 [facility] 01/31 08:46 Order name: Labs collected and sent; Complete Time: 09:17 [facility] 01/31 08:46 Order name: O2 Per Protocol; Complete Time: 09:17 [facility] 01/31 08:46 Order name: O2 Sat Monitoring; Complete Time: 09: [facility] 01/31 08:46 Order name: Urine Dipstick-Ancillary (obtain specimen); Complete Time: 13:41 [facility] EC:43 Rate is 110 beats/min. Rhythm is regular. QRS [place] is Normal. [place] interval is normal. ashley QRS interval is normal. QT interval is normal. No Q waves. T waves are Normal. No ST changes noted. Clinical impression: Sinus tachycardia and No evidence of ischemia. Interpreted by me. Reviewed by me. Administered Medications: 09:05 Drug: Aspirin Chewable Tablet 162 mg Route: PO; jl7 11:34 Follow up: Response: No adverse reaction 7 09:10 Drug: Zofran (Ondansetron) 4 mg Route: IVP; Site: left forearm; jl7 10:00 Follow up: Response: No adverse reaction; Nausea is decreased jl7 10:30 Drug: NS 0.9% 1000 ml Route: IV; Rate: 1000 ml; Site: left forearm; jl7 11:30 Follow up: Response: No adverse reaction; IV Status: Completed infusion; IV Intake: jl7 1000ml 10:55 Drug: Meropenem 1 grams Route: IV; Rate: per protocol; Site: left forearm; jl7 11:36 Follow up: IV Status: Completed infusion jl7 11:00 Drug: NS 0.9% 1000 ml Route: IV; Rate: 1 bolus; Site: left forearm; jl7 11:30 Follow up: Response: No adverse reaction; IV Status: Completed infusion; IV Intake: jl7 1000ml 11:21 Drug: Zofran (Ondansetron) 4 mg Route: IVP; Site: left forearm; jl7 13:29 Follow up: Response: No adverse reaction jl7 11:22 Drug: morphine 2 mg Route: IVP; Site: left forearm; jl7 11:25 Drug: Pepcid 20 mg Route: IVP; Site: left forearm; jl7 13:28 Follow up: Response: No adverse reaction jl7 14:11 Drug: morphine 2 mg Route: IVP; Site: left forearm; jl7 Disposition: 02/01/20 11:37 Transfer ordered to [facility]. Diagnosis are Abdominal tenderness, Chest pain, unspecified, Acute pancreatitis - mass in the head of the pancrease, Vomiting. - Reason for transfer: Higher level of care. - Accepting physician is to [facility], [facility]. - Condition is Fair. - Problem is new. - Symptoms have improved. Signatures: Dispatcher [employer] Pankaj Turenr MD MD cha Williams, Irene, RN Martina Cano RN RN jl7 Corrections: (The following items were deleted from the chart) 10:37 10:34 The patient has experienced a previous episode, ashley ashley 10:37 10:34 EMS care prior to arrival includes: saline lock, supplemental oxygen, ashley ashley 11:32 10:40 Hospitalization Ordered by Zan Martinez DO for Inpatient Admission. Preliminary [facility] diagnosis is Abdominal tenderness; Chest pain, unspecified; Acute pancreatitis. Bed requested for Telemetry/MedSurg (Inpatient). Status is Inpatient Admission. Condition is Fair. Problem is new. Symptoms have improved. [facility] 14:18 11:37 02/01/2020 11:37 Transfer ordered to [facility]. jl7 Diagnosis is Abdominal tenderness; Chest pain, unspecified; Acute pancreatitis - mass in the head of the pancrease; Vomiting. Reason for transfer: Higher level of care. Accepting physician is to [facility], [facility]. Condition is Fair. Problem is new. Symptoms have improved. ashley
[2020-02-01] MEDS ORDERED: Meropenem 1 GM/100 ML BAG ONE (11:10)
[2020-02-01] MEDS ORDERED: MORPHINE 2 MG/ML SYR ONE ×2 (11:10→14:22)
[2020-02-01] MEDS ORDERED: FAMOTIDINE 20 MG/2 ML VIAL IV ONE (11:10)
--- NOTE | 2020-02-01 11:13 | RAD REPORT ---
EXAM DESCRIPTION: CT - Chest Abdomen Pelvis W Cont - 02/01/2020 10:52 am CLINICAL HISTORY: vomiting, chest pain, abdominal pain COMPARISON: CT ABD PELVIS W CONTRAST dated 08/09/2014; CT ABD PELVIS W CONTRAST dated 08/02/2014; SPINE LUMBAR W OBLIQUE dated 05/09/2015 TECHNIQUE: Following dynamic enhancement using 100 milliliters nonionic IV contrast, axial imaging o f the chest, abdomen and pelvis was performed. Biphasic technique was utilized through the abdomen. No oral contrast administered. All CT scans are performed using dose optimization technique as appropriate and may include automated exposure control or mA/KV adjustment according to patient size. FINDINGS: Lungs are clear of mass and infiltrate. No pleural effusion, pleural thickening or pneumot horax. No significant aortic or pulmonary arterial tree finding. Mediastinal and hilar regions show n o mass or abnormal lymphadenopathy. No chest wall mass or axillary lymphadenopathy. Uppermost chest a ssessment is limited due to the spray artifact from the shoulder prostheses. Thyroid nodularity is pr esent on the right but not accurately assessed due to the spray artifact. No acute rib finding. The liver and spleen show no suspicious findings. Cholecystectomy clips are present with no biliary t ree dilatation. Symmetric renal function is seen with no mass or hydronephrosis. No adrenal abnormali ties. Significant dilatation of the pancreatic duct is seen in the head and body. This is less prominent in to the tail. No defined mass in the body and tail of the pancreas. There is free fluid and edema arou nd the pancreas. There is poorly defined hypodense tissue in the posterior head and uncinate region o f the pancreas. This is difficult to differentiate from the on opacified bowel in this region. No ewing creatic duct stone. The pancreatic duct dilatation is new from the 2014 CT study. No dilated bowel loops or focal bowel wall thickening. No acute GI findings seen. Calcifications are present around the uterus and in the adjacent vasculature. No acute uterine finding. Ovaries are obsc ured by the on opacified bowel loops. Small amount of ascites is present. No free air or pneumatosis. Patient has very advanced degenerative change and posttraumatic changes in the spine. A T12 old burst fracture is present. Vertebroplasty bone cement is in place. There is been more fragmentation of the T12 body since 2016. Posterior wall encroaches significantly into the central canal with spinal sten osis down to 6 mm. Multiple mid and lower thoracic compression fractures are present all probably old . Advanced disc disease present in the lumbar spine. IMPRESSION: Significant pancreatic duct dilatation with poorly defined hypodense tissue in the head and uncinate process region. On opacified bowel on this region limits the full assessment. Findings a re concerning for a pancreatic malignant process. Small amount of ascites is present mostly around the pancreas. No acute CT chest finding. Advanced degenerative and posttraumatic changes are seen in the chest. T12 burst fracture has been pr eviously treated with vertebroplasty. There has been greater fragmentation of the body since the 2014 he event. Posterior wall retropulsion causes central spinal stenosis down to 6 mm.
--- NOTE | 2020-02-01 11:51 | P.CNS ---
Date of Consult: 02/01/20 Reason for Consult: ER Consultation Requesting Physician: Pankaj Yepez Primary Care Provider: None; Annalee Cheney Chief Complaint: Nausea, vomiting, chest pain, abdominal pain History of Present Illness: 79-year-old female with history of rheumatoid arthritis on disease modifying medication, hypothyroidism, and osteoporosis. Patient presented to the emergency room with increased nausea and vomiting, abdominal pain mainly to the epigastric region and chest pain.Patient reports that she has been tired and fatigued over the last several weeks. She denies any fever, chills. Poor appetite noted. Over the last day she had increasing abdominal pain to the epigastric region. She rates the pain about a 6/10. No radiation pain noted. She has had normal bowel movements. She also reported some left-sided chest pain as well. Her symptoms did not improve. She came to the ER for further evaluation. In the ER patient evaluated. Vital signs showed. CBC unremarkable. CMP unremarkable but Lipase was greater [place] [address]. CT Scan: Significant dilatation of the pancreatic duct is seen in the head and body. This is less prominent into the tail. No defined mass in the body and tail of the pancreas. There is free fluid and edema around the pancreas. There is poorly defined hypodense tissue in the posterior head and uncinate region of the pancreas. This is difficult to differentiate from the on opacified bowel in this region. No pancreatic duct stone. The pancreatic duct dilatation is new from the 2014 CT study. No dilated bowel loops or focal bowel wall thickening. No acute GI findings seen. Calcifications are present around the uterus and in the adjacent vasculature. No acute uterine finding. Ovaries are obscured by the on opacified bowel loops. I came to evaluate the patient for possible admission versus transfer. Allergies Penicillins Allergy (Mild, Verified 08/09/14 10:59) Anaphylaxis propoxyphene HCl [From Darvon] Allergy (Mild, Verified 08/09/14 10:59) Nausea/Vomiting Gold Salts Allergy (Verified 08/09/14 10:59) Itching/Hives/Rash morphine Allergy (Verified 08/09/14 10:59) Nausea/Vomiting Home medications list reviewed: Yes Home Medications: Cevimeline HCl [Evoxac] 30 mg PO TID 08/09/14 Gabapentin [Neurontin] 100 mg PO TID 05/05/15 Leflunomide [Arava] 20 mg PO DAILY 08/09/14 Levothyroxine [Synthroid*] 50 mcg PO [id number] 08/09/14 Omeprazole [Prilosec] 40 mg PO DAILY 08/09/14 Promethazine Tab [Phenergan -Tab] 25 mg PO Q6HP PRN 08/09/14 Valacyclovir [Valtrex*] 500 mg PO BID 08/09/14 traMADol HCL [Ultram] 50 mg PO BID 08/09/14 - Past Medical/Surgical History Diabetic: No -: Osteoporosis -: Rheumatoid arthritis -: Sjogren's -: Hypothyroidism -: Cholecystectomy -: implants (knee, elbows, hands, wrist, shoulders) -: Back surgery Psychosocial/ Personal History: Patient lives at home alone. She is a . - Family History Father Medical History: Heart disease Mother Medical History: Other (see notes) Notes: arthiritis - Social History Smoking Status: Former smoker Alcohol use: No CD- Drugs: No Caffeine use: Yes Place of Residence: Home Review of Systems General: As per HPI Eyes: Unremarkable ENT: Unremarkable Respiratory: Unremarkable Cardiovascular: Chest Pain, As per HPI Gastrointestinal: Nausea, Vomiting, Abdominal Pain, As per HPI Musculoskeletal: As per HPI Integumentary: Unremarkable Neurological: Unremarkable Lymphatics: Unremarkable Physical Examination General: Alert, In no apparent distress, Oriented x3, Cooperative HEENT: Atraumatic, Normocephalic, Other (Dry mucous membranes noted) Neck: Supple Respiratory: Clear to auscultation bilaterally, Normal air movement Cardiovascular: Normal pulses, Regular rate/rhythm Gastrointestinal: Hypoactive, No masses, No rebound, No guarding, Tenderness (P ain to the epigastric area noted) Musculoskeletal: No erythema, No tenderness, No warmth Integumentary: No tenderness/swelling, No erythema, No warmth, No cyanosis, Other (Rheumatological changes noted to the hands, knees, and feet) Neurological: Normal speech, Normal strength at 5/5 x4 extr, Normal tone, Normal affect Laboratory Data (last 24 hrs) 02/01/20 09:07: Triglycerides 139, Cholesterol 163, HDL Cholesterol 35 L, Cholesterol/HDL Ratio 4.66 02/01/20 09:07: PT 12.4, INR 1.05 02/01/20 09:07: WBC 10.2, Hgb 12.7, Hct 36.8, Plt Count 469 H 02/01/20 09:07: Sodium 138, Potassium 3.5, BUN 18, Creatinine 0.87, Glucose 93, Magnesium 2.1, Total Bilirubin 0.9, AST 33, ALT 19, Alkaline Phosphatase 243 H, Lipase > 67968 H Conclusions/Impression: Impression: Nausea, vomiting, abdominal pain with chest pain secondary to acute pancreatitis with noted abnormal CT scan showing significant dilation of pancreatic duct to the head and body with possible underlying mass Rheumatoid arthritis on disease modifying medication Osteoporosis Hypothyroidism Elevated blood pressure suspect underlying hypertension Plan: Case reviewed in detail with ER physician and GI specialist. Due to abnormal CT findings and elevated lipase, it was recommended that the patient be transferred to high-level care [place] to further evaluate the pancreatitis and p ancreatic dilation. Pancreatic necrosis is possible. Underlying carcinoma also likely. Patient would require ERCP for pancreatic biopsy and possible pancreatic stent placement. Plan of care address with patient and family. Family agrees with transfer. ER working to have patient transferred to further evaluate and treat. Patient remains NPO. ER physician has started IV antibiotic therapy and IV fluids. Patient will likely need to be treated for her underlying hypertension as blood pressure was elevated. Will hold her disease modifying medication at this time. Advanced directives address in detail with patient. Patient is do not resuscitate. Time Spent Managing Pts care (In Minutes): 55
[2020-02-01 14:03] LABS: Urine Blood NEGATIVE (NEG); Urine Glucose NEGATIVE (NEG); Urine Protein 1+ (NEG); Urine Specific Gravity 1.015 (1.005-1.030)
[2020-02-01 14:58] VITALS: TEMP 97.8
[2020-02-01 15:00] VITALS: BP 161/94; O2SAT 99
--- NOTE | 2020-02-02 07:21 | EKG ---
Test Date: 2020-02-01 Test Time: 08:57:10 [employer]ne[employer] Electric[employer]: [employer] MEASUREMENT RESULTS: Intervals: Rate: 110 [place]: 156 QRSD: 70 QT: 344 QTc: 465 [place]: P: 51 WA: 156 QRS: 21 T: 42 INTERPRETIVE STATEMENTS: Sinus tachycardia with premature atrial complexes with aberrant conduction Possible Left atrial enlargement Borderline ECG Compared to ECG 08/09/2014 15:26:39 Atrial premature complex(es) now present Aberrant conduction of supraventricular beat(s) now present Sinus rhythm no longer present Ventricular premature complex(es) no longer present Electronically Signed On 02-02-20 07:19:43 CDT by Kai Lam
== END 2020-02-01 14:18 | disposition short-term general hospital (02) ==
LOC: ER 08:38
DX: K85.90 Acute pancreatitis without necrosis or infection, unspecified (principal); R07.9 Chest pain, unspecified; K86.9 Disease of pancreas, unspecified; R11.10 Vomiting, unspecified; Z20.828 Contact with and (suspected) exposure to other viral communicable diseases; E03.9 Hypothyroidism, unspecified; M06.9 Rheumatoid arthritis, unspecified; R03.0 Elevated blood-pressure reading, without diagnosis of hypertension; Z88.0 Allergy status to penicillin; Z88.5 Allergy status to narcotic agent; Z88.8 Allergy status to other drugs, medicaments and biological substances; Z90.49 Acquired absence of other specified parts of digestive tract; Z82.49 Family history of ischemic heart disease and other diseases of the circulatory system
CPT/HCPCS: 93005; 87088; 85025; 87086; 80048; 36415; 83735; 85610; 80061; 80076; 81003; 84484; 83690; 83880; 71260; 74177; 71045; U0003; Q9967; J2270 ×2; J2185; J7030 ×2; J2405 ×2; 96365; 96375; 99285

== ENCOUNTER 2023-04-27 12:01 | Emergency (ER) | payer OTHER ==
[2023-04-27] MEDS ORDERED: EPINEPHrine 1 MG/10 ML SYR IV ONE (12:02)
[2023-04-27] MEDS ORDERED: NOREPINEPHRINE BITARTRATE/D5W 4 MG/250 ML BAG IV ONE (12:24)
[2023-04-27] MEDS ORDERED: D50W 25 GM/50 ML SYRINGE IV ONE (12:26)
[2023-04-27] MEDS ORDERED: D5.45NS W/KCL 20MEQ 0 ML IV ONE (12:28)
[2023-04-27 12:40] LABS: SARS-CoV-2 Antigen Rapid Res Negative (Negative)
--- NOTE | 2023-04-27 12:45 | ER ---
Nurse's Notes [facility] Name: Chelsea Johnson Age: 82 yrs Sex: Female : 1940 Arrival Date: 04/27/2023 Time: 12:01 Bed 4 Private MD: Diagnosis: Cardiac arrest, cause unspecified;Acute respiratory failure Presentation: 04/27 12:14 Chief complaint: EMS states: Called to patients home for generalized weakness onset 3 cm10 days ago that has progressively gotten worse. EMS reports that when they arrived to patient's home caregiver was reporting "low O2 sats in the 30s and shortness of breath." EMS reports that they took manual BP and got 68/48. Pt awake and alert at this time. 20G to right wrist established with IV fluids infusing. Coronavirus screen: Vaccine status: Patient reports receiving the 2nd dose of the covid vaccine. Client denies travel out of the [place] in the last 14 days. Ebola Screen: Patient denies travel to an Ebola-affected area in the 21 days before illness onset. No symptoms or risks identified at this time. Initial Sepsis Screen: Does the patient meet any 2 criteria? RR > 20 per min. Systolic BP < 90 mmHg. Mean Arterial Pressure (MAP) < 65. Does the patient have a suspected source of infection? No. Patient's initial sepsis screen is negative. If YES to both, name of provider notified: Enrique Kee MD. Risk Assessment: Do you want to hurt yourself or someone else? Patient reports no desire to harm self or others. Onset of symptoms was April 24, 2023. Care prior to arrival: Medication(s) given: Normal saline infusion, 1000 mL, IV initiated. 20 GA, in the right wrist. [facility] 12:14 Method Of Arrival: EMS: [facility] cm10 12:14 Acuity: MARCUS 2 cm10 Triage Assessment: 12:15 General: Appears ill, Behavior is cooperative. Pain: Denies pain. Neuro: No deficits cm10 noted. Level of Consciousness is awake, alert. Derm: Skin with poor turgor Skin is pale, Skin temperature is cool. Historical: - Allergies: 12:14 Darvon; cm10 12:14 GOLD SALTS; cm10 12:14 PENICILLINS; cm10 12:14 Propoxyphene HCl; cm10 12:14 Morphine; cm10 - PMHx: 12:14 cervical cancer; GERD; Hypothyroidism; osteoarthritis; Osteoporosis; Rheumatoid cm10 Arthritis; - Immunization history:: Adult Immunizations unknown. - Social history:: Smoking status: Reported history of juuling and/or vaping. - Family history:: not pertinent. - Hospitalizations: : No recent hospitalization is reported. Assessment: 12:32 Reassessment: pt with agonal respirations, family called to bedside. iw 12:33 Reassessment: family requests all life saving measures be stopped. iw 13:24 Reassessment: Reassessment: Pt previously made arrangements to donate body to [facility], paged number provided son Conrad [phone]. Awaiting call back. [employer] officers at bedside, awaiting trial judge at this time. Vital Signs: 12:14 BP 61 / 45; Pulse 112; Resp 28; Temp 97.5(IR); Pulse Ox 100% on R/A; Weight 44.45 kg cm10 (R); Pain 0/10; 12:14 Pain Scale: Adult cm10 ED Course: 12:07 Patient arrived in ED. sb4 12:07 Enrique Kee MD is Attending Physician. rn 12:18 Triage completed. cm10 12:18 Arm band placed on Patient placed in an exam room, on a stretcher, on bus monitor, cm10 on pulse oximetry. 12:40 Tegan Jackson, RN is Primary Nurse. iw 12:44 Enrique Kee MD is Pronouncing Provider. rn 12:45 Lance TRINIDAD called to page out trial judge. eb Administered Medications: No medications were administered Outcome: 12:34 Patient : Time of 12:34 Pronounced by Enrique Kee MD iw 12:34 Condition: iw 16:48 Patient left the ED. iw Signatures: Tegan Jackson, NEHEMAIS DEL CID iw Enrique Kee MD MD rn Baxter, Heather, RN RN Graciela Martinez Sophia PA-C PA-C sb4 Batsheva Butler RN RN cm10 Corrections: (The following items were deleted from the chart) 13:29 13:24 Reassessment: iw
--- NOTE | 2023-04-27 12:46 | EDPHYS ---
Physician Documentation [facility] Name: Chelsea Johnson Age: 82 yrs Sex: Female : 1940 Arrival Date: 04/27/2023 Time: 12:01 Bed 4 Private MD: ED Physician Enrique Kee HPI: 04/27 12:38 This 82 yrs old Female presents to ER via EMS with complaints of General Weakness. rn 12:38 The patient has shortness of breath at rest. Onset: The symptoms/episode began/occurred rn 3 day(s) ago. Duration: The symptoms are continuous. The patient's shortness of breath is aggravated by exertion, light activity, is alleviated by nothing. Associated signs and symptoms: Pertinent positives: non-productive cough, Pertinent negatives: chest pain, hemoptysis, loss of consciousness. Severity of symptoms: At their worst the symptoms were moderate in the emergency department the symptoms are unchanged. The patient has not experienced similar symptoms in the past. Family reports patient not feeling well for the last couple days. Reports cough, nonproductive. No known fever. Patient denies any focal pain. No trauma. Patient normally ambulatory and active but for the last few days has been unable to get out of bed or chair. No new medication.. Historical: - Allergies: 12:14 Darvon; cm10 12:14 GOLD SALTS; cm10 12:14 PENICILLINS; cm10 12:14 Propoxyphene HCl; cm10 12:14 Morphine; cm10 - PMHx: 12:14 cervical cancer; GERD; Hypothyroidism; osteoarthritis; Osteoporosis; Rheumatoid cm10 Arthritis; - Immunization history:: Adult Immunizations unknown. - Social history:: Smoking status: Reported history of juuling and/or vaping. - Family history:: not pertinent. - Hospitalizations: : No recent hospitalization is reported. ROS: 12:38 Constitutional: Negative for fever, chills, and weight loss, Cardiovascular: Negative rn for chest pain, palpitations, and edema, Respiratory: Positive for cough and shortness of breath Abdomen/GI: Negative for abdominal pain, nausea, vomiting, diarrhea, and constipation, Back: Negative for injury and pain, MS/Extremity: Negative for injury and deformity, Skin: Negative for injury, rash, and discoloration, Neuro: Positive for generalized weakness Exam: 12:38 Constitutional: This is a well developed, well nourished patient who is awake, rn somnolent, moderate tachypnea and ashy color Head/Face: Normocephalic, atraumatic. ENT: Dry mucous membranes, no stridor Cardiovascular: Tachycardic, irregular. Respiratory: Moderate tachypnea, diminished breath sounds at bases, no retractions Skin: Cool extremities, ashen color MS/ Extremity: Pulses equal, no cyanosis. Neuro: Awake, somnolent but awakens to voice Vital Signs: 12:14 BP 61 / 45; Pulse 112; Resp 28; Temp 97.5(IR); Pulse Ox 100% on R/A; Weight 44.45 kg cm10 (R); Pain 0/10; 12:14 Pain Scale: Adult cm10 Procedures: 12:36 Central Line: the site was prepped with Betadine, in sterile fashion, a triple lumen rn catheter was inserted, in the right femoral vein, in 1 attempts. placement was verified, by blood return, the site was dressed with Tegaderm, using sterile technique, the patient tolerated the procedure, well. MDM: 12:12 Patient medically screened. rn 12:38 Differential diagnosis: Anemia CHF exacerbation, Myocardial Infarction pneumonia, rn Pneumothorax pulmonary edema, Pulmonary Embolism Sepsis Unstable Angina. Data reviewed: vital signs, nurses notes. ED course: Glucose in the 50s, D50 given. Central line placed immediately due to hypotension that was not responsive to EMS fluids. Shortly after central line patient began to have difficulty breathing, had seizure-like activity, and lost her pulse. Family had discussed prior to central line that patient is DNR status. Confirmed with family and they do not want us to continue CPR or intubate. Time of 1234.. 12:38 Counseling: I had a detailed discussion with the patient and/or guardian regarding. rn Response to treatment: There is no appreciated change of the patient's symptoms at this time. 12:38 ED course: I personally spent 35 minutes engaged in work directly related to the rn individual patient's care. This does not include any time spent performing procedures. The patient has been deemed critically ill because due to persistent hypotension, unclear if cardiogenic or septic, central line placement and a couple of conversations with family regarding CODE STATUS and critical nature of her illness at this time.. 04/27 12:12 Order name: SARS RAPID; Complete Time: 16:34 rn 04/27 12:12 Order name: Flu; Complete Time: 16:34 rn 04/27 12:37 Order name: Glucose, Ancillary Testing; Complete Time: 16:34 EDMS 04/27 12:11 Order name: EKG; Complete Time: 12:12 rn 04/27 12:11 Order name: Accucheck rn 04/27 12:11 Order name: Cardiac monitoring; Complete Time: 12:22 rn 04/27 12:11 Order name: EKG - Nurse/Tech; Complete Time: 12:22 rn 04/27 12:11 Order name: IV Saline Lock - Large Bore rn 04/27 12:11 Order name: Labs collected and sent rn 04/27 12:11 Order name: O2 Per Protocol; Complete Time: 12:22 rn 04/27 12:11 Order name: O2 Sat Monitoring; Complete Time: 12:22 rn 04/27 12:11 Order name: Vital Signs; Complete Time: 12:22 rn Administered Medications: No medications were administered Disposition: 12:38 Critical Care:. rn Disposition Summary: 04/27/23 12:45 Patient Notes: Location: Home rn Pronouncing Physician: Enrique Kee rn Time of : 12:34 04/27/2023 rn Diagnosis - Cardiac arrest, cause unspecified rn - Acute respiratory failure pattern repair person time excluding procedures: 12:38 Critical care time: Bedside Care: 30 minutes, Family Intervention: 5 minutes. Total rn time: 35 minutes Signatures: Dispatcher [employer] Enrique Kee MD MD rn Martinez, Clarissa RN RN cm10 Corrections: (The following items were deleted from the chart) 12:50 12:12 Chest Single View+RAD.RAD.BRZ ordered. EDMS EDMS 16:27 12:12 CBC+H.LAB.BRZ ordered. EDMS EDMS 16:31 12:12 BLOOD CULTURE*+BA.LAB.BRZ ordered. EDMS EDMS 16:31 12:12 COMPREHENSIVE METABOLIC PANEL+C.LAB.BRZ ordered. EDMS EDMS 16:31 12:12 LACTATE+C.LAB.BRZ ordered. EDMS EDMS 16:31 12:12 PROTIME (+INR)+COAG.LAB.BRZ ordered. EDMS EDMS 16:31 12:12 PTT, ACTIVATED+COAG.LAB.BRZ ordered. EDMS EDMS 12:12 Urinalysis+U.LAB.BRZ ordered. EDMS EDMS 12:12 Troponin High Sensitivity+C.LAB.BRZ ordered. EDMS EDMS 12:12 PROBNP+C.LAB.BRZ ordered. EDMS EDMS
[2023-04-27 17:35] VITALS: BP 61/45; TEMP 97.5; O2SAT 100
--- NOTE | 2023-04-28 16:54 | EKG ---
Test Date: 2023-04-27 Test Time: 12:13:51 Weld Inspector: MICHELL MEASUREMENT RESULTS: Intervals: Rate: 102 IA: QRSD: 80 QT: 376 QTc: 490 Henderson: P: IA: QRS: 59 T: 236 INTERPRETIVE STATEMENTS: Atrial fibrillation Septal infarct, age undetermined ST & T wave abnormality, consider inferior ischemia or digitalis effect ST & T wave abnormality, consider anterior ischemia or digitalis effect Abnormal ECG Compared to ECG 02/01/2020 08:57:10 Myocardial infarct finding now present ST (T wave) deviation now present Possible ischemia now present Sinus tachycardia no longer present Atrial premature complex(es) no longer present Aberrant conduction of supraventricular beat(s) no longer present Electronically Signed On 04-28-23 16:51:33 CONSTRUCTION JOB TITLES by Felipe Suero
== END 2023-04-27 16:48 | disposition expired ==
LOC: ER 12:01
PROC: 06HM33Z Insertion of Infusion Device into Right Femoral Vein, Percutaneous Approach (ICD-10-PCS; principal; 2023-04-27)
DX: I46.9 Cardiac arrest, cause unspecified (principal); J96.00 Acute respiratory failure, unspecified whether with hypoxia or hypercapnia; Z11.52 Encounter for screening for COVID-19; Z88.0 Allergy status to penicillin; Z88.5 Allergy status to narcotic agent; Z88.8 Allergy status to other drugs, medicaments and biological substances; Z91.048 Other nonmedicinal substance allergy status; Z85.41 Personal history of malignant neoplasm of cervix uteri
CPT/HCPCS: 93005; 36415; 82947; 87804 ×2; 99284; 87811; 36556; J0171